=== PATIENT | female | born 1985 | race American Indian/Alaskan Native ===

== ENCOUNTER 2017-12-17 11:05 | Emergency (ER) | payer OTHER ==
[2017-12-17 11:11] VITALS: BP 132/83; PULSE 80; RESP 16; TEMP 98; O2SAT 99; BMI 28.7
--- NOTE | 2017-12-17 11:26 | ED PDOC ---
HPI: Headache Time Seen by Provider: 12/17/17 11:09 Chief Complaint (Nursing): Headache Chief Complaint (Provider): headache History Per: Patient History/Exam Limitations: no limitations Onset/Duration Of Symptoms: Hrs (today) Current Symptoms Are (Timing): Still Present Additional Complaint(s): Marilyn Cornell is a 32 year old female, with a past medical history of diabetes, who presents to the emergency department for evaluation of a headache onset since this morning. 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 Patient has been up since then and was supposed to work until 16:00 today but because of the lack of sleep she is unable to focus and do the ultrasound. Patient states this morning she got a headache and has been feeling shaky. Patient reports a h/o DM, has been compliant with Metformin and Trulicity which she took today. She denies any fever, chills, dizziness, nausea, vomit, chest pain, shortness of breath, abdominal pain, URI symptoms or urinary symptoms. No further medical complaints. Past Medical History Reviewed: Historical Data, Nursing Documentation, Vital Signs Vital Signs: Last Vital Signs Temp 98 F 12/17/17 11:09 Pulse 80 12/17/17 11:09 Resp 16 12/17/17 11:09 BP 132/83 12/17/17 11:09 Pulse Ox 99 12/17/17 11:09 - Medical History PMH: Diabetes - Surgical History Surgical History: No Surg Hx - Family History Family History: States: Unknown Family Hx - Social History Current smoker - smoking cessation education provided: No Alcohol: None Drugs: Denies - Allergies Allergies/Adverse Reactions: Allergies Allergy/AdvReac Type Severity Reaction Status Date / Time No Known Allergies Allergy Verified 12/17/17 11:23 Review of Systems ROS Statement: Except As Marked, All Systems Reviewed And Found Negative Constitutional: Positive for: Other (shaky). Negative for: Fever, Chills ENT: Negative for: Nose Congestion Cardiovascular: Negative for: Chest Pain Respiratory: Negative for: Cough, Shortness of Breath Gastrointestinal: Negative for: Nausea, Vomiting, Abdominal Pain Genitourinary Female: Negative for: Dysuria, Frequency Neurological: Positive for: Headache. Negative for: Dizziness Physical Exam - Reviewed Nursing Documentation Reviewed: Yes Vital Signs Reviewed: Yes - Physical Exam Comments: GENERAL APPEARANCE: Patient is awake, alert, oriented x 3, in no acute distress. SKIN: Warm, dry; (-) cyanosis; (-) rash. HEAD: (-) scalp swelling or tenderness, (-) temporal artery tenderness. EYES: (-) conjunctival pallor, (-) scleral icterus. ENMT: (-) sinus tenderness; mucous membranes are moist. NECK: (-) tenderness, (-) stiffness, (-) meningismus, (-) lymphadenopathy. CHEST AND RESPIRATORY: (-) rales, (-) rhonchi, (-) wheezes; breath sounds equal bilaterally. HEART AND CARDIOVASCULAR: (-) irregularity; (-) murmur, (-) gallop. ABDOMEN AND GI: Soft; (-) tenderness. EXTREMITIES: (-) deformity. NEURO AND PSYCH: Mental status as above. 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 Strength symmetric. - ECG O2 Sat by Pulse Oximetry: 99 (RA) Pulse Ox Interpretation: Normal Medical Decision Making Medical Decision Making: Time: 11:09 Initial Impression: headache Initial Plan: --Motrin 600 mg PO --Urine (-) --Finger Stick 119 --Reevaluation 11:30 Advised to follow up with primary care physician in 1-2 days without fail. Advised to rest. Return to the emergency room at any time for any new or worsening symptoms. Patient states she fully agrees with and understands discharge instructions. States that she agrees with the plan and disposition. Verbalized and repeated discharge instructions and plan. I have given the patient opportunity to ask any additional questions. ----- Scribe Attestation: Documented by Artem Lucas, acting as a scribe for Tiffanie Robins PA-C. Provider Scribe Attestation: All medical record entries made by the Scribe were at my direction and personally dictated by me. I have reviewed the chart and agree that the record accurately reflects my personal performance of the history, physical exam, medical decision making, and the department course for this patient. I have also personally directed, reviewed, and agree with the discharge instructions and disposition. Disposition - Clinical Impression Clinical Impression: Headache - Patient ED Disposition Is Patient to be Admitted: No Counseled Patient/Family Regarding: Diagnosis, Need For Followup - Disposition Disposition: Routine/Home Disposition Time: 11:30 Condition: STABLE Additional Instructions: Thank you for letting us take care of you today. You were treated for headache. The emergency medical care you received today was directed towards the acute presenting symptoms. Bedrest. Return to the Emergency Department at any time if symptoms worsen, do not improve, or if any other problems arise. Please contact your doctor in 2 days for re-evaluation and follow up. Bring any paperwork you were given at discharge with you along with any medications to your follow up visit. Our treatment cannot replace ongoing medical care by a primary care provider (PCP) outside of the emergency department. Thank you for allowing the [facility] team to be part of your care today. 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
== END 2017-12-17 12:10 | disposition home or self-care (01) ==
LOC: H.ER 11:05
DX: R51 Headache (principal); E11.9 Type 2 diabetes mellitus without complications

== ENCOUNTER 2018-06-21 17:49 | Emergency (ER) | payer OTHER ==
[2018-06-21 17:50] VITALS: BMI 28.7
[2018-06-21 18:04] VITALS: BP 145/90; PULSE 92; RESP 16; TEMP 98.4; O2SAT 100
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
== END 2018-06-21 19:45 | disposition home or self-care (01) ==
LOC: H.ER 17:49
DX: R51 Headache (principal); M54.12 Radiculopathy, cervical region; E11.9 Type 2 diabetes mellitus without complications; V49.49XA Driver injured in collision with other motor vehicles in traffic accident, initial encounter

== ENCOUNTER 2018-08-17 06:14 | Day surgery (SDC) | payer OTHER ==
[2018-08-09 17:30] VITALS: BMI 28.9
[2018-08-17] MEDS ORDERED: Lidocaine 1% Inj (20ml) IJ ONE (06:49)
[2018-08-17] MEDS ORDERED: Bupivacaine 0.5% Inj(30mL) IJ ONE (06:49)
[2018-08-17 06:52] VITALS: RESP 18
--- NOTE | 2018-08-17 06:52 | CP.SDSHP ---
Same Day Surgery H & P - History Proposed Procedure: Right foot lapidus bunionectomy Pre-Op Diagnosis: Right foot bunion deformity - Allergies Allergies: Allergies No Known Allergies Allergy (Verified 06/21/18 17:59) - Physical Exam Vital Signs: Vital Signs 08/17/18 06:46 Pulse Rate 75 - {Optional Preform as Required} Integument: WNL - Date & Time Date: 08/17/18 Time: 06:52 Short Stay Discharge - Short Stay Discharge Admitting Diagnosis/Reason for Visit: M20.11 Disposition: HOME/ ROUTINE Additional Instructions (Diet, Activity): -Patient in good/stable condition for discharge home -Pt to resume medications per medical reconciliation -Resume regular diet -Please keep dressing clean, dry, & intact to surgical site -Use plastic bag over bandage for showering -Wear post op shoe at all times when ambulating -Call clinic if you see signs of infection (redness, swelling, malodor) -Please make an appointment to see Dr. Cueva in office/clinic within 1 week for post-op check Progress Note/Discharge Note with Instructions: - Patient evaluated bedside in recovery s/p right lapidus bunionectomy. - After surgical procedure patient in NAD - (+) Void, (+) Appetite - Capillary refill time <3s and NVS intact. - Patient denies complaints at this time. - Post operative instructions and plan of care explained to patient at length. - Patient. acknowledges verbal understanding. - Patient stable for DC per podiatric surgery
[2018-08-17] MEDS ORDERED: Sodium Chloride 0.9% 1,000 ML IV SCH (07:00)
--- NOTE | 2018-08-17 07:09 | CP.PCM.PN ---
Subjective - Date & Time of Evaluation Date of Evaluation: 08/17/18 Time of Evaluation: 07:06 - Subjective Subjective: Podiatry progress note - Dr. Cueva 33F seen and evaluated at bedside in [facility] this AM for preoperative evaluation for right lapidus bunionectomy. Resting comfortably. States that she has had this bunion for a long time but over the past months the pain from the deformity has gotten progressively worse. States that it comes on randomly at points but also after she has worked out. States she has tried conservative treatment which has all failed. States she has not eaten since 9:30 PM last night. Denies n/v/f/c/sob today and has no other acute complaints. PMHx: DM PSHx: denies All: NKDA Objective - Vital Signs/Intake and Output Vital Signs (last 24 hours): Temp Pulse Resp BP Pulse Ox 98.9 F 75 18 124/67 97 08/17/18 06:50 08/17/18 06:50 08/17/18 06:50 08/17/18 06:50 08/17/18 06:50 - Medications Medications: Current Medications Cefazolin Sodium 1 gm/ Sodium (Chloride) 100 mls @ 100 mls/hr IVPB ONCE ONE; Protocol Stop: 08/17/18 08:14 Sodium Chloride (Sodium Chloride 0.9%) 1,000 mls @ 0 mls/hr IV .Q0M [facility] Stop: 08/18/18 06:49 - Constitutional Appears: Non-toxic - Head Exam Head Exam: ATRAUMATIC - Extremities Exam Additional comments: RLE focused exam VASC: DP and PT pulses palpable; cap refill <3 seconds to all digits; temp gradient wnl; mild edema noted to the first mpj; hair growth present DERM: no open lesions or wounds; mild erythema noted medially at the first MPJ ORTHO: mild pain on palpation at the first mpj; hypermobility at firt met- cuneiform joint; first metatarsal in a plantaflexed position; not trackbound NEURO: gross and protective sensation intact - Neurological Exam Neurological Exam: Alert, Awake, Oriented x3 - Psychiatric Exam Psychiatric exam: Normal Affect Assessment and Plan - Assessment and Plan (Free Text) Assessment: 33F with right foot bunion deformity Plan: Pt was seen and examined in [facility] Pt NPO status was confirmed All pre-op testing and clearance in chart Pt has exhausted all conservative treatment at this time and is opting for surgical intervention Pt was explained procedure and post-operative course All pt's questions were answered to satisfaction No guarantees were made Pt understands all risks, benefits and complications of procedure Pt will follow-up with Dr. Cueva within 1 week of surgery
[2018-08-17] MEDS ORDERED: ceFAZolin 1 GM in Sodium Chloride 0.9% 100 ML IVPB ONE (07:15)
[2018-08-17] MEDS ORDERED: Propofol 10 mg/ml Inj (20 ML) ONE ×5 (07:20→09:52)
[2018-08-17] MEDS ORDERED: Midazolam 2 MG/2 ML VIAL ONE (07:20)
[2018-08-17] MEDS ORDERED: Lidocaine 1% Inj (20ml) ONE (07:29)
[2018-08-17] MEDS ORDERED: Lactated Ringer's 1,000 ML IV ONE ×2 (07:50→09:30)
[2018-08-17] MEDS: Bupivacaine 0.5% Inj(30mL) ONE ×2 (07:55→10:21)
[2018-08-17] MEDS ORDERED: HYDROmorphone 0.5 mg/0.5 ml ISec IVP PRN (10:38)
[2018-08-17] MEDS ORDERED: Oxycodone/Acetaminophen 5/325 mg Tab PO PRN ×2 (10:38)
--- NOTE | 2018-08-17 10:42 | PCM.SURG1 ---
<Uma Fry - Last Filed: 08/17/18 10:40> Surgeon's Initial Post Op Note - Surgeon's Notes Surgeon: Dr. Cueva, DPM [employer] Specialist: Dr. Karen Mata, PGY3, Dr. Reji Sykes, PGY2, Dr. Uma Fry, PGY1 Type of Anesthesia: General LMA, Local Anesthesia Administered By: Dr. Patten Pre-Operative Diagnosis: Right Foot Hallux Abducto Valgus Operative Findings: see dictation. I: 20 cc 1:1 mixture of 1% Lidocaine and 0.5% Marcaine,. M: 2-0 Vicryl, 4-0 Monocryl Post-Operative Diagnosis: same as above Operation Performed: 1) Right Gray Bunionectomy. 2) Right Lapidus Bunionectomy Specimen/Specimens Removed: none Estimated Blood Loss: EBL {In ML}: 30 Blood Products Given: N/A Drains Used: No Drains Post-Op Condition: Good Date of Surgery/Procedure: 08/17/18 Time of Surgery/Procedure: 10:43 <Randy Daly - Last Filed: 08/17/18 10:48> Surgeon's Initial Post Op Note - Surgeon's Notes Operative Findings: 4.0x26 cannulated screw x1. standard TMT plate. 2.7x18 locking screw x1. 2.7x20 locking screw x3. 2.7x22 locking screw x1
[2018-08-17] MEDS ORDERED: Lactated Ringer's 1,000 ML IV SCH (10:45)
[2018-08-17 13:09] VITALS: BP 122/68; PULSE 82; TEMP 98.6; O2SAT 100
--- NOTE | 2018-08-17 14:10 | RAD ---
Date of service: 08/17/2018 PROCEDURE: Right Foot Radiographs. HISTORY: s/p Lapidus surgery COMPARISON: None. TECHNIQUE: 3 views obtained. FINDINGS: BONES: Expected postoperative findings 1st metatarsal. No evidence of orthopedic hardware failure. JOINTS: Normal. SOFT TISSUES: Air identified soft tissues consistent with recent surgery. OTHER FINDINGS: None. IMPRESSION: Satisfactory postoperative status. Limitations of the current study: Detail obscured by overlying fiberglass cast.
--- NOTE | 2018-08-18 15:24 | OP ---
PROCEDURE DATE: 08/17/2018 PREOPERATIVE DIAGNOSIS: Right foot hallus valgus deformity. POSTOPERATIVE DIAGNOSIS: Right foot hallus valgus deformity. PROCEDURES: 1. Right foot [place] bunionectomy. 2. Right foot Lapidus first metatarsal cuneiform joint fusion with the use of internal fixation. SURGEON: Eve Cueva DPM ASSISTANTS: Karen Mata, PGY-3; Dr. Sykes, PGY-2; Dr. Sykes, PGY-1. TYPE OF ANESTHESIA: General LMA. ANESTHESIA ADMINISTERED BY: Lenka Patten MD INDICATIONS: The patient is a 33-year-old female with the above-mentioned diagnosis. The patient has exhausted multiple forms of conservative treatment at this time and now seeks surgical intervention. The patient signed the consent after careful explanation of risks, benefits, complications and alternatives for surgical procedure. No guarantees were given nor implied. The patient was brought into the operating room and placed on the operating room table in a supine position. A time-out was performed for identification of the correct patient and procedure. The patient received a total of 20 mL of 0.5% Marcaine plain in a local block type to the right foot. Once general anesthesia was achieved, the right foot was then prepped and draped in normal sterile manner and the pneumatic calf tourniquet was inflated to 250 mmHg and the procedure began. DESCRIPTION OF PROCEDURE: PROCEDURE #1: Attention was directed to the dorsal aspect of the first metatarsal head of the right foot where an approximately 4 cm linear longitudinal incision was made medial and parallel to the tendon the extensor hallucis longus involving the contour of the deformity. The incision was deepened through subcutaneous tissue with care being taken to identify and retract all vital neurovascular structures. All bleeders were cauterized and ligated as necessary. Attention was then directed to the first interspace via the incision where the tendon of the extensor hallucis brevis was identified and tenectomized. Dissection was continued deep using blunt dissection down to the level of the fibular sesamoid which was frayed with soft tissue attachments proximally, laterally, and distally and then the ligament was then passed off of the operative field. The conjoined tendon of the abductor hallucis muscle was then identified and transected at its attachments at the base of the proximal phalanx of the hallux. At this time, the lateral contractor present on the hallux was noted to be reduced and the sesamoid apparatus was noted to flowed into a more corrected medial position. At this time, a linear capsulotomy was performed over the dorsal aspect of the first metatarsophalangeal joint. The periosteal and capsular structures were then carefully dissected free of their osseous attachments and reflected medially and laterally thus exposing the head of the first metatarsal into the operative site. Next, utilizing a sagittal bone saw, the medial eminence was then resected and passed from the operative field. The medial eminence was then smoothed down with a bone rasp. Copious irrigation was used at this time. The incision in play was then closed with 2-0 Vicryl, 4-0 Vicryl, and 4-0 Monocryl. PROCEDURE #2: At this time, attention was directed more proximally to the first metatarsal cuneiform joint where a 4-cm linear longitudinal incision was made overlying the base of the first metatarsal and the medial cuneiform. The incision was deepened into subcutaneous tissue with care being taken to identify and retract all vital neurovascular structures. The periosteal dissection was made using sharp dissection and the cuneiform joint was visualized and freed of all of its ligamentous, capsular, and periosteal structures. Next, the metatarsal was retracted and using a sagittal saw, the articular cartilage was resected off of the base of the first metatarsal as well as the dorsal aspect of the medial cuneiform and passed off of the operative field. The incision site was then copiously irrigated with sterile normal saline. All of the joint was prepped for arthrodesis. Temporary fixation was used across the joint using a 4.5 K-wire and was rimmed from the base of the first metatarsal to the medial cuneiform for temporary compression. Next, using standard AO principles and techniques, a 4.0 Synthes lag screw was placed across the joint with excellent compression noted. K-wires were then removed. Next, a Synthes Lapidus plate was then applied dorsomedially across the joint. The plate was then drilled with locking Synthes screws both distally and proximally. The joint was assessed at this time and under C-arm fluoroscopy excellent compression was noted across the joint and the plate and the screws were all compressed down to the bone. The incision site at this time was then copiously irrigated with sterile normal saline and the first metatarsal cuneiform joint was visualized under C-arm fluoroscopy and noted to be in a more corrected position. The subcutaneous tissue was then reapproximated with 2-0 and 3-0 Vicryl and 4-0 Vicryl and the subcuticular tissue was reapproximated with 4-0 Monocryl. Postoperative injection of 10 mL of 0.5% Marcaine plain was given in a local block type fashion to the right foot. Postoperative dressing included Steri-Strips, Betadine-soaked Adaptic, 4 x 4 gauze, [place] and a posterior splint was applied to the right lower extremity. POSTOPERATIVE CONDITION: The patient tolerated the anesthesia and the procedure well and was escorted to the recovery room with vital signs stable and neurovascular status intact to the right lower extremity. The patient will follow up with Dr. Cueva in her office on an outpatient basis. Karen Mata DPM Eve Cueva DPM
== END 2018-08-17 14:30 | disposition home or self-care (01) ==
LOC: H.OPSURG 06:14
PROVIDERS: ATTEND Podiatrist Foot & Ankle Surgery
DX: M20.11 Hallux valgus (acquired), right foot (principal); E11.9 Type 2 diabetes mellitus without complications
CPT/HCPCS: 28296; 28297; 73630; 82948; 97116; 97161; G8978; G8979; J0690; J2001; J2250; J2704; J2765; J3010; J7120